=== PATIENT | female | born 1940 | race Caucasian/White ===

== ENCOUNTER 2022-10-09 14:41 | Outpatient (CLI) | payer MEDICARE, SELFPAY ==
--- NOTE | ~2022-10-09 | DEXA_ITS ---
Bone Density Report Name: LENY MACHUCA Age: 82 Sex: Female Ethnicity: White Date of : 1940 Indication: postmenopausal; screening for osteoporosis; height loss; Referring Provider: JOANN CONNER Study: Bone densitometry was performed. Exam Date: October 09, 2022 Accession number: [id number] Bone Density: Region BMD T-score Z-score Classification AP Spine(L1-L4) 1.009 -0.3 2.5 Normal Femoral Neck (Left) 0.647 -1.8 0.7 Osteopenia Total Hip (Left) 0.809 -1.1 1.2 Osteopenia Femoral Neck (Right) 0.631 -2.0 0.5 Osteopenia Total Hip (Right) 0.775 -1.4 0.9 Osteopenia Total Hip Mean 0.792 -1.3 1.1 Osteopenia World Health Organization criteria for BMD impression classify patients as: Normal (T-score at or above -1.0), Osteopenia (T-score between -1.0 and -2.5), or Osteoporosis (T-score at or below -2.5). 10-year Fracture Risk(1): Major Osteoporotic Fracture 20% Hip Fracture 7.3% Reported Risk Factors: [place] (), Neck BMD=0.631, BMI=25.1, alcohol use (1) FRAX(R) Version 3.08. Fracture probability calculated for an untreated patient. Fracture probability may be lower if the patient has received treatment. Clinical Information Provided by Patient: Has 3 or more alcoholic drinks per day Has used the following medications: Prolia (i.e. denosumab), Vitamin D, Calcium Patient maximum height was 63 Menopause Age: 53 No regular weight bearing exercise Drinks caffeinated beverages Onset of menses at age 10 Number of children 2 Impression: UNAPPROVED The patient has low bone mass, based on the Right Femoral Neck T-score. The patient has an estimated ten-year risk of hip fracture of 7.3% and an estimated ten-year risk of major fracture of 20%, based on the WHO FRAX algorithm. The patient has risk factors, including: excessive alcohol use. Discussion: UNAPPROVED BONE DENSITY IS LOW AT ONE OR MORE SKELETAL SITES. THE PATIENT'S BMD AND CLINICAL RISK FACTORS CONTRIBUTE TO THIS PATIENT'S HIGH RISK OF FRACTURE. This patient's lowest T-score is low at one or more skeletal sites. It meets the World Health Organization's (WHO) criteria for ?low bone mass? (T-score between -1.0 and -2.5). The patient's 10-year risk of hip fracture and 10 year risk of a major osteoporotic fracture as calculated by FRAX exceeds the threshold where pharmacological therapy is recommended by the National Osteoporosis Foundation (NOF). However, all treatment decisions require clinical judgment and consideration of individual patient factors, including patient preferences, comorbidities, previous drug use, risk factors not captured in the FRAX model (e.g., frailty, falls, vitamin D deficiency, increased bone turnover, interval significant decline in bone density) and possible under or overestimation of fracture ris
== END 2022-10-09 14:42 | disposition home or self-care (01) ==
LOC: ANHIMG 14:45
PROVIDERS: PCP Family Medicine; Visit Provider Physician Assistant Medical
DX: M81.0 Age-related osteoporosis without current pathological fracture (principal); M85.852 Other specified disorders of bone density and structure, left thigh; M85.851 Other specified disorders of bone density and structure, right thigh
CPT/HCPCS: 77080

== ENCOUNTER 2022-12-26 11:11 | Emergency (ER) | payer MEDICARE, SELFPAY ==
[2022-12-26 11:26] VITALS: BP 120/61; PULSE 87; RESP 16; TEMP 36.5; O2SAT 98
[2022-12-26 11:33] VITALS: BP 120/61; PULSE 87; RESP 16; TEMP 36.5; O2SAT 98
--- NOTE | 2022-12-26 11:36 | ED.URI ---
HPI - URI/Sore Throat General Chief Complaint: Upper Respiratory Infection Stated Complaint: LOSING VOICE/COUGH/RUNNY NOSE/WATERY EYES Time Seen by Provider: 12/26/22 11:24 Source: patient and RN notes reviewed Mode of arrival: ambulatory Limitations: no limitations History of Present Illness HPI Narrative: Patient presents today complaining of 5 day history of hoarse voice, cough, rhinorrhea, watering eyes. Denies congestion, shortness of breath, fever. She has been taking Claritin and Tylenol with mild relief. Denies known sick contacts. Denies history of asthma, COPD, seasonal allergies. Patient just moved to town from [place]. Related Data Home Medications Medication Instructions Recorded Confirmed amlodipine 2.5 mg tablet 2.5 mg PO BID 06/24/22 12/26/22 atorvastatin 10 mg tablet 10 mg PO .QD 06/24/22 12/26/22 biotin 5 mg capsule 5 mg PO .QD 06/24/22 12/26/22 carvedilol 3.125 mg tablet (Coreg) 3.125 mg PO Q12H 06/24/22 11/20/22 carvedilol 6.25 mg tablet (Coreg) 6.25 mg PO Q12H 06/24/22 11/20/22 clobetasol 0.05 % scalp solution 1 applic topical .QD PRN Mouth 06/24/22 12/26/22 sores fluticasone propionate 50 1 spray intranasal BID PRN 06/24/22 12/26/22 mcg/actuation nasal shortness of breath spray,suspension loratadine 10 mg tablet 10 mg PO .QD 06/24/22 12/26/22 polyethylene glycol 3350 17 17 g PO .QD 06/24/22 12/26/22 gram/dose oral powder (Miralax) propylene glycol 0.6 % eye drops 1 drp EACH EYE DAILY PRN dry eyes 06/24/22 12/26/22 (Systane Balance) vitamin B complex (B 1 tablet PO .QD 06/24/22 12/26/22 Complex-Vitamin B12 tablet) aspirin 81 mg tablet 81 mg PO DAILY 12/26/22 12/26/22 calcium-ergocalciferol (vit D2) 1 tablet PO DAILY 12/26/22 12/26/22 tablet cholecalciferol (vitamin D3) 50 50 mcg PO DAILY 12/26/22 12/26/22 mcg (2,000 unit) capsule (Vitamin D3) lisinopril 20 mg tablet 20 mg PO BID 12/26/22 12/26/22 lorazepam 1 mg tablet 1.5 mg PO BID PRN anxiety 12/26/22 12/26/22 multivit with minerals-iron 18 1 tablet PO DAILY 12/26/22 12/26/22 mg-folic ac 400 mcg-vit K 25 mcg tablet (Adults Multivitamin) omega-3 fatty acids 1 cap PO DAILY 12/26/22 12/26/22 zoledronic acid 5 mg/100 mL in 5 mg IV ONCE 12/26/22 12/26/22 mannitol 5 %-water intravenous piggybck (Reclast) Allergies Allergy/AdvReac Type Severity Reaction Status Date / Time No Known Allergies Allergy Verified 11/20/22 12:56 Review of Systems Review of Systems: CONSTITUTIONAL: Denies body aches, fever, chills, or sweats. EYES: Denies visual changes, redness, or discharge.+ watery eyes ENT: Denies congestion, sore throat, or otalgia.+ rhinorrhea, hoarse voice CARDIOVASCULAR: Denies chest pain, palpitations, or edema. RESPIRATORY: Denies dyspnea.+ cough GASTROINTESTINAL: Denies abdominal pain, nausea, vomiting, or diarrhea. GENITOURINARY: Denies dysuria or hematuria. SKIN: Denies rash, itching, or wounds. MUSCULOSKELETAL: Denies back pain, joint pain, or myalgia. NEUROLOGIC: Denies headache, numbness, tingling, or weakness. PSYCH: Denies depression or anxiety. [facility] Surgical History Surgical History History of History of thyroidectomy History of tonsillectomy and adenoidectomy Family History Family History Other Melanoma Social History Social History Smoking status: Never smoker Alcohol intake: current Lack of Transportation: No Lack of Food: Never True Current Housing: I Have Housing Concerned About Future Housing: No Difficulty Paying Gas/Electric Bills: No Difficulty Paying for Meds: No Currently Unemployed: No Education: Bachelor's Degree Difficulty w/ Childcare or Family Care: No Comments At time of signature, I have reviewed and agree with nursing past medical, surgical, social
== END 2022-12-26 11:55 | disposition home or self-care (01) ==
PROVIDERS: Emergency Provider Nurse Practitioner; PCP Physician Assistant Medical
DX: J30.2 Other seasonal allergic rhinitis (principal); J40 Bronchitis, not specified as acute or chronic; J04.2 Acute laryngotracheitis; H10.13 Acute atopic conjunctivitis, bilateral; E89.0 Postprocedural hypothyroidism; Z79.82 Long term (current) use of aspirin
CPT/HCPCS: 99213; G0463

== ENCOUNTER 2023-02-05 09:56 | Inpatient (IN) | payer MEDICARE, SELFPAY ==
[2023-02-05] VITALS (17 sets, daily range): BP systolic 124–159; BP diastolic 61–80; PULSE 87–100; RESP 18–29; TEMP 36.1–37; O2SAT 93–99; BMI 23.2
--- NOTE | ~2023-02-05 | XR_ITS ---
EXAMINATION: XR chest 2V DATE: 02/05/2023 10:30 INDICATION: Chest pain and shortness of breath TECHNIQUE: Frontal and lateral views of the chest are obtained COMPARISON: None available FINDINGS: The lungs are free of acute opacities. No pleural effusion or pneumothorax. The cardiomedia stinal silhouette is normal. There is moderate thoracic spondylosis. 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 An old healed posterior left sevent h rib fracture is noted. IMPRESSION: 1. No acute cardiopulmonary abnormality. Reviewed, dictated and finalized at location B.
--- NOTE | ~2023-02-05 | CT_ITS ---
EXAMINATION: CTA chest PE protocol DATE: 02/05/2023 21:21 INDICATION: Shortness of breath with exertion. TECHNIQUE: Computed tomography angiography (CTA) of the chest was performed with 100 mL Omnipaque-350 intravenous contrast timed to evaluate the pulmonary arteries. Coronal maximum intensity projection 3D-reconstructions were created by the technologist. Automated exposure control and iterative reconst ruction technique were employed. The dose-length product was 147.85 mGy-cm. COMPARISON: Chest 2 views 02/05/2023 FINDINGS: There is mild atelectasis bilaterally. There is a 3 mm nodule in left upper lobe, likely be nign. No pleural effusion. There is right atrial and right ventricular enlargement of the heart. No p ericardial effusion. There are coronary artery calcifications. There are acute pulmonary emboli in al l lobes. There are gallstones in the gallbladder, which is normal in size. There is a healing fractur e of right sixth rib. There is an old healed fracture of left seventh rib. There is moderate thoracic spondylosis. There is mild chronic anterior wedging of multiple vertebral bodies. IMPRESSION: 1. Acute pulmonary emboli in all lobes with right heart strain. Reviewed, dictated and finalized at location E.
--- NOTE | ~2023-02-05 | US_ITS ---
EXAMINATION: US venous doppler [facility] DATE: 02/05/2023 22:55 INDICATION: Chest pain. TECHNIQUE: Grayscale ultrasound images without and with compression and Doppler ultrasound images of the bilateral lower extremity veins were obtained. COMPARISON: None. FINDINGS: The visualized portions of right profunda (deep) femoral vein, femoral vein, popliteal vein, peroneal veins, posterior tibial veins, and greater saphenous vein outflow are patent. There is thrombus in r ight common femoral vein. The visualized portions of left common femoral vein, profunda femoral vein, peroneal veins, posterior tibial veins, and greater saphenous vein outflow are patent. There is thrombus in left femoral and p opliteal veins. IMPRESSION: 1. Deep vein thrombosis involving right common femoral vein, left femoral vein, and left popliteal v ein. Reviewed, dictated and finalized at location E. IMPRESSION: 1. Deep vein thrombosis involving right common femoral vein, left femoral vein , and left popliteal vein.
[2023-02-05 10:29] LABS: Basophils Percent Auto 0.3 % (0.2-1.2); Eosinophils Absolute Auto 0.1 K/mm3 (0-0.3); Eosinophils Percent Auto 0.8 % (0-4.4); Hemoglobin 11.8 g/dL (12.0-15.0); Immature Granulocyte Absolute 0.04 K/mm3 (0.00-0.031); Immature Granulocyte Percent A 0.4 % (0-0.5); Lymphocytes Absolute Auto 1.63 K/mm3 (0.9-3.2); Lymphocytes Percent Auto 16.6 % (18.3-44.2); Mean Corpuscular HGB Conc 32.8 g/dl (32-36); Mean Corpuscular Hemoglobin 34.1 pg (26-34); Monocytes Absolute Auto 0.9 K/mm3 (0.1-0.6); Monocytes Percent Auto 9.6 % (2.6-8.5); Neutrophils Absolute Auto 7.1 K/mm3 (1.3-6.7); Neutrophils Percent Auto 72.3 % (45.5-73.1); Platelet Count Result 294 k/mm3 (150-375); Red Blood Count 3.46 M/mm3 (4.2-5.4); White Blood Count 9.8 K/mm3 (4.5-10.0)
[2023-02-05 10:40] LABS: INR 1.1; Prothrombin Time 14.4 Seconds (11.1-14.7)
[2023-02-05 10:41] LABS: Partial Thromboplastin Time 30.5 SECONDS (22.3-36.8)
[2023-02-05 10:45] LABS: Alanine Aminotransferase 21 U/L (6-35); Albumin Level 4.1 g/dL (3.5-5.1); Alkaline Phosphatase 68 U/L (38-126); Anion Gap 12 mmol/L (8-16); Aspartate Amino Transferase 34 U/L (14-36); Bilirubin,Total 1.2 mg/dL (0.2-1.3); Blood Urea Nitrogen 16 mg/dL (7-17); Carbon Dioxide 19 mmol/L (22-30); Chloride 105 mmol/L (98-107); Estimated Glomerular Filt Rate 60; Glucose 124 mg/dL (65-110); Potassium 4.2 mmol/L (3.4-5.0); Sodium 136 mmol/L (137-145)
--- NOTE | 2023-02-05 11:24 | ED.SOB ---
HPI - SOB/Dyspnea General Chief Complaint: Shortness of Breath/Dyspnea Stated Complaint: dyspnea Time Seen by Provider: 02/05/23 09:56 History of Present Illness HPI Narrative: Patient is an 82-year-old female who presents ER with chest pain or shortness of breath. Reports its been ongoing over the last week. She has central chest discomfort anytime she exerts herself. It makes her short of breath and she feels slightly nauseated. No diaphoresis. No radiating pain to the shoulder or arm. No history of coronary disease. She does have history of mitral valve regurgitation. She had a stress test 1 year ago that was normal Related Data Home Medications Medication Instructions Recorded Confirmed amlodipine 2.5 mg tablet 2.5 mg PO BID 06/24/22 02/05/23 atorvastatin 10 mg tablet 10 mg PO DAILY 06/24/22 02/05/23 biotin 5 mg capsule 5 mg PO DAILY 06/24/22 02/05/23 clobetasol 0.05 % scalp solution 1 applic topical DAILY PRN Mouth 06/24/22 02/05/23 sores loratadine 10 mg tablet 10 mg PO DAILY 06/24/22 02/05/23 polyethylene glycol 3350 17 17 g PO DAILY 06/24/22 02/05/23 gram/dose oral powder (Miralax) propylene glycol 0.6 % eye drops 1 drp EACH EYE DAILY PRN dry eyes 06/24/22 02/05/23 (Systane Balance) aspirin 81 mg tablet 81 mg PO DAILY 12/26/22 02/05/23 calcium-ergocalciferol (vit D2) 2 tablet PO DAILY 12/26/22 02/05/23 tablet cholecalciferol (vitamin D3) 50 50 mcg PO DAILY 12/26/22 02/05/23 mcg (2,000 unit) capsule (Vitamin D3) multivit with minerals-iron 18 1 tablet PO DAILY 12/26/22 02/05/23 mg-folic ac 400 mcg-vit K 25 mcg tablet (Adults Multivitamin) omega-3 fatty acids 1 cap PO DAILY 12/26/22 02/05/23 zoledronic acid 5 mg/100 mL in 5 mg IV ONCE 12/26/22 02/05/23 mannitol 5 %-water intravenous piggybck (Reclast) imipramine HCl 10 mg tablet 10 mg PO DAILY 02/05/23 02/05/23 vitamin B complex (B 1 tablet PO DAILY 02/05/23 02/05/23 Complex-Vitamin B12 tablet) Allergies Allergy/AdvReac Type Severity Reaction Status Date / Time No Known Allergies Allergy Verified 01/29/23 09:20 Review of Systems Review of Systems: All systems reviewed & are unremarkable except as noted in HPI and below Constitutional: Constitutional: Denies chills, Denies fatigue and Denies fever(s) ENT: Denies nasal congestion and Denies sore throat Cardiovascular: Cardiovascular: Reports chest pain, Denies rapid heart rate and Denies radiating jaw, neck or arm pain Respiratory: Respiratory: Denies cough and Denies dyspnea Gastrointestinal: Gastrointestinal: Denies abdominal pain, Reports nausea and Denies vomiting PMFSH Past Medical History Medical History BMI 22.0-22.9, adult Surgical History Surgical History History of History of thyroidectomy History of tonsillectomy and adenoidectomy Family History Family History Father , melanoma No problems noted. Mother Depression Osteoporosis Dementia Sibling No problems noted. 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 Gender identity (if verbalized by the patient): Female Spiritual care concerns: No
--- NOTE | 2023-02-05 11:39 | PC.NURSE ---
EPIFANIO PT DAUGHTER [phone]
[2023-02-05] MEDS: HEPARIN SOD/D5W 100 UNITS/ML 25,000 UNITS/250 ML BAG 7 UNITS IV CONT (11:43)
[2023-02-05] MEDS: HEPARIN SODIUM 5,000 UNITS/ML VIAL 3500 UNITS IV PUSH (11:49)
--- NOTE | 2023-02-05 13:08 | PC.NURSE ---
This patient, Sana Hartley, was admitted to IMU Room 212-01. Patient/family oriented to hospital policies and general routines including ID bracelet, bed and alarms, visiting hours, pain management, procedures, bathroom and other care routines, personal items, smoking policy, room service/diet, and visiting hours. Information on how to activate the Rapid Response Team has been discussed. Patient/Family are encouraged to report perceived risks to care and to ask questions if they do not understand what they are told or what they should do.
[2023-02-05 13:39] LABS: Basophils Percent Auto 0.4 % (0.2-1.2); Eosinophils Absolute Auto 0.1 K/mm3 (0-0.3); Eosinophils Percent Auto 0.7 % (0-4.4); Hematocrit 36.7 % (37.0-47.0); Hemoglobin 12.3 g/dL (12.0-15.0); Immature Granulocyte Absolute 0.04 K/mm3 (0.00-0.031); Immature Granulocyte Percent A 0.4 % (0-0.5); Lymphocytes Percent Auto 22.3 % (18.3-44.2); Mean Corpuscular HGB Conc 33.5 g/dl (32-36); Mean Corpuscular Hemoglobin 34.1 pg (26-34); Mean Corpuscular Volume 101.7 fl (80-100); Mean Platelet Volume 9.9 fl (7.4-10.4); Monocytes Absolute Auto 0.9 K/mm3 (0.1-0.6); Monocytes Percent Auto 8.7 % (2.6-8.5); Neutrophils Absolute Auto 7.3 K/mm3 (1.3-6.7); Neutrophils Percent Auto 67.5 % (45.5-73.1); Platelet Count Result 310 k/mm3 (150-375); Red Blood Count 3.61 M/mm3 (4.2-5.4); White Blood Count 10.8 K/mm3 (4.5-10.0)
[2023-02-05 14:03] LABS: Troponin I 0.516 ng/mL (0.000-0.034)
--- NOTE | 2023-02-05 14:41 | PM.IMHP ---
H&P: HPI History of Present Illness Date/Time: 02/05/23 14:41 Chief Complaint: Shortness of breath Narrative: This is an 82-year-old female patient who has a history of hyperlipidemia hypertension and anxiety. The patient is a lifelong nonsmoker and has not had any previous history of tobacco abuse. The patient stated that she had a stress test approximately 1 year ago that was negative. She also had an echo at that time. The patient stated she has had no prior history of any myocardial infarction or cardiac catheterization nor has she had any cardiac stents for any cardiac events. The patient stated the year ago she had an anxiety attack with she had tightness in her chest and was short of breath. She stated for the last week she has gotten short of breath with minimal exertion and had some chest tightness. She states this is relieved with rest. She states over the last couple days the shortness of breath has gotten so bad that it has limited her activities. She feels fine when she is resting but with any exertion she is short of breath. The patient does take a daily aspirin. She has had no fever or chills. Her white count is 10.8. Hematocrit is 36.7 MCV is 101.7. Her sodium is 136. Her troponin is 0.600, 0.516, 0.498. Cardiology has been consulted the patient was placed on heparin drip. No EKG was available in her chart. Chest x-ray was read as no acute cardiopulmonary abnormality. The patient is being admitted to observation status on the date of service of 02/05/2023. Review of Systems Review of Systems: All systems reviewed & are unremarkable except as noted in HPI and below Constitutional: Constitutional: Reports as per HPI and Reports no additional constitutional complaints Eyes: Eyes: Reports as per HPI and Reports no additional eye complaints ENT: Reports system reviewed and no additional complaints, except as documented and Reports Normal hearing present Cardiovascular: Cardiovascular: Reports no additional cardiovascular complaints Respiratory: Respiratory: Reports no additional respiratory complaints and Reports no additional respiratory complaints Gastrointestinal: Gastrointestinal: Reports as per HPI and Reports no additional gastrointestinal complaints Musculoskeletal: Musculoskeletal: Reports no additional musculoskeletal complaints Integumentary/Breasts: Skin/Breast: Reports system reviewed and no additional complaints, except as docu and Reports as per HPI Neurologic: Reports system reviewed and no additional complaints, except as documented, Reports as per HPI and Reports Normal hearing present Psychiatric: Psychiatric: Reports no additional psychiatric complaints and Reports as per HPI Endocrine: Endocrine: Reports no additional endocrine complaints Hematologic/Lymphatic: Hematologic/Lymphatic: Reports no additional hematologic/lymphatic complaints Allergic/Immunologic: Allergic/Immunologic: Reports no additional allergic/immunologic complaints [facility] Past Medical History Medical History (Updated 02/05/23 @ 19:02 by Vani Lawton NP) Anxiety BMI 22.0-22.9, adult Essential hypertension Hyperlipidemia Nasal polyp Osteopenia Surgical History Surgical History (Updated 02/05/23 @ 19:02 by Vani Lawton NP) H/O dilation and curettage History of appendectomy History of X2 History of thyroidectomy Partial History of tonsillectomy and adenoidectomy Family History Family History (Updated 02/05/23 @ 19:17 by Vani Lawton NP) Father , melanoma No problems noted. Mother Depression Osteoporosis Dementia Sibling No problems noted. Daughter Multiple sclerosis Other Melanoma Social History Social History (Updated 02/05/23 @ 19:17 by Vani Lawton NP) Social History: The patient is . Her has in last year. 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
--- NOTE | 2023-02-05 15:02 | PM.CNCAR ---
Assessment and Plan Assessment and plan (1) Shortness of breath: Code(s): R06.02 - Shortness of breath Status: Acute (2) Troponin level elevated: Code(s): R77.8 - Other specified abnormalities of plasma proteins Status: Acute Plan This is an 82-year-old woman reporting symptoms of exertional shortness of breath of recent onset. Concern is that this is an ischemic equivalent since she has not had these symptoms before and her troponin level is somewhat elevated. I do not see a 12 lead EKG in our chart although she did state that 1 was done in the emergency room. For some reason is not showing up on the electronic record for my review. She is not having any unstable/symptoms at rest. Because of these symptoms and the elevated troponin I would recommend proceeding with a coronary angiogram. Patient understands this and is agreeable. I anticipate doing this procedure on Wednesday morning. Albino Reynolds MD [facility] History of Present Illness History of Present Illness Consult date/time: 02/05/23 15:02 Reason For Visit: NSTEMI Narrative: This is an 82-year-old woman I am seeing at the request of the hospitalist according to orders for non ST elevation [place]. The patient states she is not known to have any cardiac problems before this but came to the emergency room today because of exertional shortness of breath she states the symptoms began about 7-10 days ago and reports that she is a lady it used to be able to conduct her daily activities without any problems and now with modest activity she is experiencing shortness of breath she uses as an example of walking from room to room in her home. With resting for a couple of minutes the symptoms tend to subside her shortness of breath is not associated with any sense of chest pain pressure or heaviness. She is not experiencing any orthopnea or PND. She has noticed in the last 6 months she has occasional lower extremity edema that she is not having any of that at this time. She contacted her PCP about the symptoms today and was told to go to the emergency department. She was seen in the emergency department where her evaluation consisted of standard lab data including troponin levels. Troponins were elevated at 0.6 and 0.5. She was placed on a heparin drip and admitted to the IMU. I do not see an electrocardiogram on the record. There is no other pertinent history. The patient recently moved here last year from [place] after the of her to live in this facility closer to her daughter. She lives in a independent living apartment. She is a nonsmoker she reports a history of hypertension no history of dyslipidemia or diabetes. She has an intravenous heparin drip running has no other complaints or concerns at this time. She states that she recalls her physician in [place] telling her a number of years ago that she had a mildly leaking mitral valve that was being followed in the office clinically she. She also remembers having had a nuclear stress test done at least a few years ago if not earlier than that. She says the study was normal she cannot remember the reason that was performed. Review of Systems Constitutional: Constitutional: Reports no additional constitutional complaints Eyes: Eyes: Reports no additional eye complaints ENT: Reports system reviewed and no additional complaints, except as documented Cardiovascular: Cardiovascular: Reports as per HPI Respiratory: Respiratory: Reports dyspnea on exertion Gastrointestinal: Gastrointestinal: Reports no additional gastrointestinal complaints Musculoskeletal: Musculoskeletal: Reports no additional musculoskeletal complaints Integumentary/Breasts: Skin/Breast: Reports system reviewed and no additional complaints, except as docu Neurologic: Reports system reviewed and no additional complaints, except as documented Endocrine: Endocrine: Reports no additional endocrine complaints Hematologic/Lymphati
[2023-02-05 17:22] LABS: Troponin I 0.498 ng/mL (0.000-0.034)
[2023-02-05 18:25] LABS: Partial Thromboplastin Time 151.9 SECONDS (22.3-36.8)
[2023-02-05] MEDS: ACETAMINOPHEN 325 MG TABLET 650 MG PO (18:26)
--- NOTE | 2023-02-05 18:48 | ECG_ITS ---
Measurements Intervals [place] Rate: 89 P: 83 NE: 190 QRS: -9 QRSD: 82 T: -42 QT: 380 QTc: 464 Interpretive Statements SINUS RHYTHM INCOMPLETE RIGHT BUNDLE BRANCH BLOCK LOW QRS VOLTAGE IN PRECORDIAL LEADS INFERIOR INFARCT, AGE INDETERMINATE ST-T WAVE ABNORMALITY IN ANTEROLATERAL LEADS- CONSIDER ISCHEMIA ABNORMAL ECG NO PREVIOUS ECG AVAILABLE FOR COMPARISON Electronically Signed On 02-05-2023 20:36:15 CDT by Adal Thomas D.O.
[2023-02-05] MEDS: amLODIPine BESYLATE 2.5 MG TABLET PO (19:52)
[2023-02-05] MEDS: carvediloL 6.25 MG TABLET PO (22:18)
[2023-02-05] MEDS: carvediloL 3.125 MG TABLET PO (22:19)
[2023-02-06] VITALS (19 sets, daily range): BP systolic 110–143; BP diastolic 47–77; PULSE 61–102; RESP 18–24; TEMP 36.3–36.6; O2SAT 93–98
--- NOTE | 2023-02-06 | ECHO_ITS ---
Patient Info Name: Sana Hartley Age: 82 years : 1940 Gender: Female Ht: 62 in Wt: 126 lbs BSA: 1.59 m2 HR: 96 bpm BP: 135 / 68 mmHg Heart Rhythm: Sinus Rhythm Technical Quality: Fair Exam Date: 02/06/2023 8:40 AM Exam Location: [facility] Pulmonary Exam Room: 212 Patient Status: Inpatient Admit Date: 02/05/2023 Staff Ordering Physician: Albino Reynolds MD Saw Handle Assembler: Jenn Al RDCS Attending Provider: Albino Lopez MD Referring Physician: Gail DE LA FUENTE; Exam Type: CA echo dop color flow w con Study Info Indications - NSTEMI SOB ELEVATED TROPONINS - ACUTE CORONARY SYNDROME Complete two-dimensional, color flow and Doppler transthoracic echocardiogram is performed with contrast to opacify the left ventricle and to improve the deliniation of the left ventricle endocardial borders. Contrast/Agitated Saline Contrast/Ag. Saline: Definity Amount: 2.00 ml Administered By: Jenn Al [facility] Existing IV Access: Yes IV Access Condition: patent with no signs of infiltration Summary 1. Normal left ventricular size with hyperdynamic systolic function. 2. Right ventricular enlargement with RV systolic dysfunction. 3. Small amount of tricuspid insufficiency valve velocities suggest moderately elevated RV systolic pressure. 4. No left-sided valvular disease. Left Ventricle Left ventricular chamber dimension is normal. Left ventricular systolic function is hyperdynamic, estimated at >70%. The left ventricular diastolic function is normal. Right Ventricle Right ventricular chamber dimension is moderately enlarged. Right ventricular systolic function is reduced. Left Atria Left atrial chamber dimension is normal. Right Atria Right atrial chamber dimension is mildly enlarged. Aortic Valve The aortic valve is trileaflet. There is mild aortic valve sclerosis. Pulmonic Valve The pulmonic valve is normal. Mitral Valve The mitral valve has normal leaflets. Tricuspid Valve The tricuspid valve leaflets are normal. There is mild tricuspid valve regurgitation. Moderate pulmonary hypertension, estimated pulmonary arterial systolic pressure is 58 mmHg. Pericardium/Pleural The pericardium appears normal. Aorta The aortic root size at the sinus of Valsalva is normal. Left Ventricular Outflow Tract Name Value Normal LVOT 2D LVOT Diameter 1.97 cm LVOT Doppler LVOT Peak Gradient 6 mmHg LVOT Mean Gradient 3 mmHg LVOT VTI 19.18 cm LVOT VTI/AV VTI Ratio 1.06 LVOT Stroke Volume 58.56 ml LVOT CO 15.26 l/min LVOT CI 9.61 L/min/m2 Pulmonic Valve Name Value Normal RVOT Doppler RVOT Peak Gradient 1 mmHg PV Doppler
[2023-02-06] MEDS: ACETAMINOPHEN 325 MG TABLET 650 MG PO (00:01)
[2023-02-06] MEDS: LORazepam (*CRX) 1 MG TABLET PO ×2 (00:03→20:44)
[2023-02-06] MEDS: LORazepam (*CRX) 0.5 MG TABLET PO ×2 (00:03→20:44)
[2023-02-06 01:54] LABS: Partial Thromboplastin Time 59.1 SECONDS (22.3-36.8)
[2023-02-06] MEDS: HEPARIN SODIUM 5,000 UNITS/ML VIAL 2000 UNITS IV PUSH ×2 (02:24→08:57)
[2023-02-06 04:53] LABS: Alanine Aminotransferase 35 U/L (6-35); Albumin Level 3.6 g/dL (3.5-5.1); Alkaline Phosphatase 78 U/L (38-126); Anion Gap 8 mmol/L (8-16); Aspartate Amino Transferase 54 U/L (14-36); Bilirubin,Total 0.6 mg/dL (0.2-1.3); Blood Urea Nitrogen 13 mg/dL (7-17); Calcium 8.7 mg/dL (8.4-10.2); Carbon Dioxide 26 mmol/L (22-30); Chloride 103 mmol/L (98-107); Estimated CRCL calculation 41 ml/min; Estimated Glomerular Filt Rate > 60; Glucose 107 mg/dL (65-110); Magnesium 1.8 mg/dL (1.6-2.3); Potassium 3.5 mmol/L (3.4-5.0); Sodium 137 mmol/L (137-145)
[2023-02-06 05:26] LABS: Basophils Percent Auto 0.3 % (0.2-1.2); Eosinophils Absolute Auto 0.1 K/mm3 (0-0.3); Eosinophils Percent Auto 1.1 % (0-4.4); Hematocrit 34.1 % (37.0-47.0); Hemoglobin 11.4 g/dL (12.0-15.0); Immature Granulocyte Absolute 0.03 K/mm3 (0.00-0.031); Immature Granulocyte Percent A 0.3 % (0-0.5); Lymphocytes Absolute Auto 3.02 K/mm3 (0.9-3.2); Lymphocytes Percent Auto 30.7 % (18.3-44.2); Mean Corpuscular HGB Conc 33.4 g/dl (32-36); Mean Corpuscular Hemoglobin 33.7 pg (26-34); Mean Corpuscular Volume 100.9 fl (80-100); Mean Platelet Volume 10.2 fl (7.4-10.4); Monocytes Percent Auto 10.2 % (2.6-8.5); Neutrophils Absolute Auto 5.6 K/mm3 (1.3-6.7); Neutrophils Percent Auto 57.4 % (45.5-73.1); Platelet Count Result 320 k/mm3 (150-375); Red Blood Count 3.38 M/mm3 (4.2-5.4); Red Cell Distribution Width 12.9 % (11.5-14.5); White Blood Count 9.8 K/mm3 (4.5-10.0)
[2023-02-06 08:40] LABS: Partial Thromboplastin Time 64.6 SECONDS (22.3-36.8)
--- NOTE | 2023-02-06 08:58 | PM.PNCARD ---
Progress Note: A&P Assessment and Plan (1) Troponin level elevated: Code(s): R77.8 - Other specified abnormalities of plasma proteins Status: Acute (2) Shortness of breath: Code(s): R06.02 - Shortness of breath Status: Acute Plan 82-year-old lady with DVT/extensive pulmonary embolization with right heart strain. She is hemodynamically stable and is oxygenating adequately however. She is anticoagulated with IV heparin. Given the diagnosis of extensive PE which clearly explains her symptoms there is no indication to proceed with left heart catheterization on Wednesday I will cancel this procedure. She needs to be transition to an oral anticoagulant and this will be deferred to the primary team. If there are additional cardiac questions please let me know otherwise I will sign off at this time since the diagnosis of pulmonary embolism does not require ongoing involvement of our service Albino Reynolds MD [facility] Subjective Date/time seen: Date of service: 02/06/23 08:58 Interval history: Follow-up visit in this 82-year-old lady with: Recent onset of significant debilitating exertional dyspnea with modest troponin elevation. Seen in consultation yesterday afternoon. Initial plans made for coronary angiography with the idea that her dyspnea was a ischemic equivalent. Last night she was found to have significant pulmonary embolism in all lobes as well as DVT. She remains heparinize. At rest she seems to be feeling comfortable. Exam Const: General: comfortable and no acute distress Other: Patient comfortable at rest HENMT: Mouth: Yes moist mucous membranes Eyes: Sclera: sclerae normal Neck: Neck: supple Resp: Auscultation: clear to auscultation bilaterally Cardio: Rate: regular rate Rhythm: regular rhythm Other: Sinus rhythm heart rate 94 GI: GI Palp: Yes Soft to palpation Auscultation: normal bowel sounds Skin: General skin exam: normal color Neuro: Other: Alert and oriented x3 Extrem: Other: No edema Objective Data Vital Signs Vital Signs: Vital Signs - 24 hr 02/05/23 11:16 02/05/23 11:17 02/05/23 11:15 Temperature 37.0 C 36.6 C Pulse Rate 88 87 Respiratory Rate 22 H 22 H Blood Pressure 132/68 Pulse Oximetry 93 Oxygen Delivery Room Air 02/05/23 11:31 02/05/23 11:32 02/05/23 11:52 Temperature Pulse Rate 96 95 99 Respiratory Rate 29 H 25 H 19 Blood Pressure 148/78 H Pulse Oximetry 97 Oxygen Delivery 02/05/23 12:00 02/05/23 12:15 02/05/23 12:35 Temperature Pulse Rate 91 90 Respiratory Rate 18 23 H Blood Pressure 134/61 Pulse Oximetry 98 Oxygen Delivery Room Air 02/05/23 12:35 02/05/23 14:00 02/05/23 13:00 Temperature 36.3 C L Pulse Rate 98 96 98 Respiratory Rate 22 H Blood Pressure 148/68 H Pulse Oximetry 99 Oxygen Delivery 02/05/23 16:00 02/05/23 16:00 02/05/23 16:00 Temperature 36.6 C Pulse Rate 98 99 Respiratory Rate 18 Blood Pressure 124/80 Pulse Oximetry 98 Oxygen Delivery Room Air 02/05/23 18:00 02/05/23 20:00 02/05/23 20:00 Temperature 36.1 C L Pulse Rate 98 100 Respiratory Rate 18 Blood Pressure 135/72 Pulse Oximetry 94 Oxygen Delivery Room Air 02/05/23 22:18 02/05/23 23:41 02/05/23 20:00 Temperature 36.3 C L Pulse Rate 99 97 93 Respiratory Rate 18 Blood Pressure 159/79 H Pulse Oximetry 95 Oxygen Delivery 02/05/23 22:00 02/06/23 00:00 02/06/23 00:00 Temperature Pulse Rate 100 93 Respiratory Rate Blood Pressure Pulse Oximetry Oxygen Delivery Room Air 02/06/23 02:00 02/06/23 04:00 02/06/23 04:00 Temperature 36.4 C Pulse Rate 78 88 Respiratory Rate 18 Blood Pressure 135/68 Pulse Oximetry 93 Oxygen Delivery Room Air 02/06/23 04:00 02/06/23 06:00 02/06/23 08:00 Temperature 36.3 C L Pulse Rate 80 78 86 Respiratory Rate 24 H Blood Pressure 143/64 H Pulse Oxi
[2023-02-06] MEDS: MULTIVITAMINS /C LUTEIN (CENTRUM SILVER) TABLET *BKC 1 TAB PO (09:02)
[2023-02-06] MEDS: CHOLECALCIFEROL 1,000 UNITS TABLET 2000 UNITS PO (09:02)
[2023-02-06] MEDS: OMEGA 3 POLYUNSAT FATTY ACIDS 1 GM CAP PO (09:03)
[2023-02-06] MEDS: METOPROLOL SUCCINATE EXT REL 25 MG TABCR PO (09:03)
[2023-02-06] MEDS: ROSUVASTATIN 10 MG TABLET PO (09:04)
[2023-02-06] MEDS: ESCITALOPRAM OXALATE 10 MG TABLET 20 MG PO (09:04)
[2023-02-06] MEDS: ASPIRIN 81 MG ENTERIC TABLET PO (09:05)
[2023-02-06] MEDS: LORATADINE 10 MG TABLET PO (09:05)
[2023-02-06] MEDS: carvediloL 6.25 MG TABLET PO ×2 (09:05→20:38)
[2023-02-06] MEDS: amLODIPine BESYLATE 2.5 MG TABLET PO ×2 (09:06→16:00)
[2023-02-06] MEDS: carvediloL 3.125 MG TABLET PO ×2 (09:06→20:39)
[2023-02-06] MEDS: polyethylene glycoL 3350 17 GM POWD.PACK PO (09:06)
[2023-02-06] MEDS: PERFLUTREN LIPID MICROSPHERES 1.5 ML VIAL DILUTED TO 10 ML TOTAL VOLUME IV PUSH (09:19)
--- NOTE | 2023-02-06 11:20 | PHAR ---
HOME MED: IMIPRAMINE TAB 10 MG; TAKE 1 TABLET BY MOUTH DAILY. VERIFIED BY PHARMACY.
--- NOTE | 2023-02-06 11:26 | PM.IMPN ---
Progress Note: A&P Assessment and Plan (1) Troponin level elevated: Code(s): R77.8 - Other specified abnormalities of plasma proteins Status: Acute Assessment and Plan: likely related to underlying pulmonary embolism. (2) Essential hypertension: Code(s): I10 - Essential (primary) hypertension Status: Acute Assessment and Plan: Continue with amlodipine and continue with metoprolol. (3) Hyperlipidemia: Qualifiers: Hyperlipidemia type: unspecified Qualified Code(s): E78.5 - Hyperlipidemia, unspecified Code(s): E78.5 - Hyperlipidemia, unspecified Status: Acute Assessment and Plan: Cardiology changed her cholesterol medicine a Crestor from atorvastatin. (4) Shortness of breath: Code(s): R06.02 - Shortness of breath Status: Acute Assessment and Plan: Chest x-ray was negative. All time a CT a pulmonary. The patient is currently on heparin drip. Chest x-ray was negative. 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 (6) Anxiety: Code(s): F41.9 - Anxiety disorder, unspecified Status: Acute Assessment and Plan: Continue with Lexapro (7) Pulmonary embolism: Code(s): I26.99 - Other pulmonary embolism without acute cor pulmonale Status: Acute Assessment and Plan: will transition to oral anticoagulant. Hemodynamically stable Subjective Date/time seen: 02/06/23 11:26 Interval history: No complaints. Hemodynamically stable Exam Const: General: cooperative, healthy appearing, comfortable, no acute distress, well developed, awake, Physically active, average body habitus and well nourished Nutritional Appearance: average body habitus and well nourished Orientation/consciousness: oriented to person, oriented to place, oriented to time and patient oriented x3 Limitations: no limitations HENMT: Head: normal to inspection, No palpable skull fracture present, normocephalic and atraumatic Ears: hearing grossly normal bilaterally and external ears normal Face/Nose/Sinus: Normal external nose present and Normal nares present Eyes: General: appearance normal, both eyes and all related structures Alignment and Position: alignment normal Periorbital: periorbital findings normal Eyelids: eyelids normal Sclera: sclerae normal Pupils: Equal, round and reactive pupils present EOM: EOMs intact bilaterally Neck: Neck: normal visual inspection, full ROM, no lymphadenopathy, trachea midline and supple Chest: Chest palpation & inspection: normal inspection of the chest Resp: Effort & Inspection: normal respiratory effort Auscultation: clear to auscultation bilaterally Percussion: percussion normal Cardio: Palpation: normal PMI Rate: regular rate Rhythm: regular rhythm Heart sounds: S1 normal heart sound present and S2 normal heart sound present Peripheral pulses: Peripheral pulses 2+ throughout GI: Inspection: normal to inspection Auscultation: normal bowel sounds Rectal Exam: deferred Back/Spine/Pelvis: Cervical Spine: cervical ROM normal Skin: General skin exam: normal color Lesions: no lesions Rashes: no rashes Trauma: no lacerations or abrasions Wounds: no wounds Hair: normal Nails: normal Neuro: General: oriented to person, oriented to place, oriented to time and patient oriented x3 Cranial nerves: Yes Equal, round and reactive pupils present and Yes Normal hearing present Cognition (Neuro): normal cognition Speech: normal speech Gait exam (Neuro): Normal gait present Motor exam (neuro): 5/5 motor strength present throughout Sensory Exam: normal sensation Extrem: General: normal to inspection Right upper extremity: normal to inspection and shoulder/upper arm Left upper extremity: normal to inspection and shoulder/upper arm Right lower extremity: normal to inspection Left lo
[2023-02-06 12:26] LABS: Free T4 Free Thyroxine Reflex 1.97 ng/dL (0.78-2.19)
[2023-02-06 13:23] LABS: Total Triiodothyronine (T3) 1.09 NG/ML (0.97-1.69)
[2023-02-06 15:39] LABS: Partial Thromboplastin Time 103.9 SECONDS (22.3-36.8)
[2023-02-06] MEDS: APIXABAN 5 MG TABLET 10 MG PO (20:38)
[2023-02-07] VITALS (10 sets, daily range): BP systolic 117–141; BP diastolic 56–71; PULSE 73–92; RESP 18–20; TEMP 35.9–36.4; O2SAT 94–96
[2023-02-07] MEDS: ESCITALOPRAM OXALATE 10 MG TABLET 20 MG PO (09:15)
[2023-02-07] MEDS: amLODIPine BESYLATE 2.5 MG TABLET PO (09:15)
[2023-02-07] MEDS: MULTIVITAMINS /C LUTEIN (CENTRUM SILVER) TABLET *BKC 1 TAB PO (09:16)
[2023-02-07] MEDS: OMEGA 3 POLYUNSAT FATTY ACIDS 1 GM CAP PO (09:17)
[2023-02-07] MEDS: carvediloL 6.25 MG TABLET PO (09:18)
[2023-02-07] MEDS: METOPROLOL SUCCINATE EXT REL 25 MG TABCR PO (09:19)
[2023-02-07] MEDS: ASPIRIN 81 MG ENTERIC TABLET PO (09:19)
[2023-02-07] MEDS: APIXABAN 5 MG TABLET 10 MG PO (09:22)
[2023-02-07] MEDS: carvediloL 3.125 MG TABLET PO (09:22)
[2023-02-07] MEDS: LORATADINE 10 MG TABLET PO (09:23)
[2023-02-07] MEDS: CHOLECALCIFEROL 1,000 UNITS TABLET 2000 UNITS PO (09:23)
[2023-02-07] MEDS: ROSUVASTATIN 10 MG TABLET PO (09:24)
[2023-02-07] MEDS: polyethylene glycoL 3350 17 GM POWD.PACK PO (09:24)
--- NOTE | 2023-02-07 10:47 | PM.DS ---
DS: Admitting Diagnosis Discharge Date February 07, 2023 Admitting Diagnosis PE DS: Discharge Diagnosis Discharge Diagnosis (1) Troponin level elevated: Code(s): R77.8 - Other specified abnormalities of plasma proteins Status: Acute Assessment and Plan: likely related to underlying pulmonary embolism. (2) Essential hypertension: Code(s): I10 - Essential (primary) hypertension Status: Acute Assessment and Plan: Continue with amlodipine and continue with metoprolol. (3) Hyperlipidemia: Qualifiers: Hyperlipidemia type: unspecified Qualified Code(s): E78.5 - Hyperlipidemia, unspecified Code(s): E78.5 - Hyperlipidemia, unspecified Status: Acute Assessment and Plan: Cardiology changed her cholesterol medicine a Crestor from atorvastatin. (4) Shortness of breath: Code(s): R06.02 - Shortness of breath Status: Acute Assessment and Plan: Chest x-ray was negative. All time a CT a pulmonary. The patient is currently on heparin drip. Chest x-ray was negative. 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 (6) Anxiety: Code(s): F41.9 - Anxiety disorder, unspecified Status: Acute Assessment and Plan: Continue with Lexapro (7) Pulmonary embolism: Code(s): I26.99 - Other pulmonary embolism without acute cor pulmonale Status: Acute Assessment and Plan: will transition to oral anticoagulant. Hemodynamically stable DS: Summary Hospital Course Hospital Course: Patient is an 82-year-old came in with chest pain and mild elevation troponin. Initially we thought this was a non STEMI. However workup revealed a pulmonary embolism. She required no oxygen, she is able to get up move around the room and do her normal activities. She does have a fairly large clot burden but she has tolerated heparin to transition to Eliquis. Patient is now on Eliquis orally and can be discharged. She will need follow-up with Cardiology as she may need ischemic workup in the future. Also follow-up primary care physician Time Spent with Patient Time attestation: Total time spent providing and/or coordinating discharge services: Exam Const: General: cooperative, healthy appearing, comfortable, no acute distress, well developed, awake, Physically active, average body habitus and well nourished Nutritional Appearance: average body habitus and well nourished Orientation/consciousness: oriented to person, oriented to place, oriented to time and patient oriented x3 Limitations: no limitations HENMT: Head: normal to inspection, No palpable skull fracture present, normocephalic and atraumatic Ears: hearing grossly normal bilaterally and external ears normal Face/Nose/Sinus: Normal external nose present and Normal nares present Eyes: General: appearance normal, both eyes and all related structures Alignment and Position: alignment normal Periorbital: periorbital findings normal Eyelids: eyelids normal Sclera: sclerae normal Pupils: Equal, round and reactive pupils present EOM: EOMs intact bilaterally Neck: Neck: normal visual inspection, full ROM, no lymphadenopathy, trachea midline and supple Chest: Chest palpation & inspection: normal inspection of the chest Resp: Effort & Inspection: normal respiratory effort Auscultation: clear to auscultation bilaterally Percussion: percussion normal Cardio: Palpation: normal PMI Rate: regular rate Rhythm: regular rhythm Heart sounds: S1 normal heart sound present and S2 normal heart sound present Peripheral pulses: Peripheral pulses 2+ throughout GI: Inspection: normal to inspection Auscultation: normal bowel sounds Rectal Exam: deferred Back/Spine/Pelvis: Cervical Spine: cervical ROM normal Skin: General skin exam: normal color Lesions: no lesions Rashes: no rashes Trau
== END 2023-02-07 12:00 | disposition home or self-care (01) | DRG 176 ==
LOC: ANHED 10:43 → ANHIMU 11:59
PROVIDERS: Nurse Practitioner; Admitting Provider Chiropractor; Emergency Provider Emergency Medicine; PCP Family Medicine; Visit Provider Chiropractor
DX: I26.99 Other pulmonary embolism without acute cor pulmonale (principal); I82.432 Acute embolism and thrombosis of left popliteal vein; I82.412 Acute embolism and thrombosis of left femoral vein; I38 Endocarditis, valve unspecified; I10 Essential (primary) hypertension; E78.5 Hyperlipidemia, unspecified; F41.9 Anxiety disorder, unspecified; M85.80 Other specified disorders of bone density and structure, unspecified site; Z90.49 Acquired absence of other specified parts of digestive tract; R77.8 Other specified abnormalities of plasma proteins
CPT/HCPCS: 36415; 71046; 71275; 80053; 83735; 84439; 84443; 84480; 84484; 85025; 85610; 85730; 93005; 93306; 93970; 96365; 99285; A9270; C8929; G0378; J1644; Q9957; Q9967

== ENCOUNTER 2024-10-27 16:38 | Outpatient (CLI) | payer MEDICARE, SELFPAY ==
--- NOTE | ~2024-10-27 | CT_ITS ---
History: Injury PROCEDURE: CT head without contrast. COMPARISON: None TECHNIQUE: Axial imaging of the head performed from the skull base to the vertex without IV contrast. Sagittal a nd coronal reformations obtained. DLP: 605 mGy-cm FINDINGS: The ventricles are enlarged. The dilatation of the ventricles is proportional to the degree of sulcal prominence, not uncommon in the senescent brain. Decreased attenuation is identified within the periventricular white matter, likely secondary to micr ovascular ischemic disease, in a patient of this age. There is no mass, mass effect or midline shift. There is no abnormal extra-axial fluid collection or intracranial hemorrhage. Visualized paranasal sinuses are clear. The mastoid air cells are well aerated. No acute displaced fractures within the overlying cranium. Impression: No acute intracranial hemorrhage or suspicious mass effect. Reviewed, dictated and finalized at location A. Impression: No acute intracranial hemorrhage or suspicious mass effect.
--- OUTSIDE RECORDS SUMMARY | 2024-10-27 16:41 | XMS_ITS ---
Author Name Lissa Cuevas Address [address] [place] [address] Phone [phone] Organization [employer] ices Address [address] [facility] [place] [address] Phone [phone] Care Team Providers Care Cytology Supervisor Name Role Phone Lissa Cuevas Unavailable [phone] Functional Status No Results Mental Status No Results Allergies and Intolerances No Known Allergies Encounters Program Name Primary Diagnosis Admission Date/Time Dis charge Date/Time null WedMay 01 06:00 :00 EDT 2021 [facility] WedJul 20 19:00:00 EST 2023Sep 29 18:59:00 EST 2024 Problems Active Concerns * Low back pain, unspecified* Code: * Start Date: WedJul 21 00:00:00 EST 2023 * End Date: * Text: * Weakness* Code: * Start Date: WedJul 21 00:00:00 EST 2023 * End Date: * Text: Reason for Referral
== END 2024-10-27 16:39 | disposition home or self-care (01) ==
PROVIDERS: PCP Internal Medicine; Visit Provider Internal Medicine
DX: T14.90XA Injury, unspecified, initial encounter (principal); X58.XXXA Exposure to other specified factors, initial encounter
CPT/HCPCS: 70450

== ENCOUNTER 2024-10-31 14:48 | Outpatient (CLI) | payer MEDICARE, SELFPAY ==
--- NOTE | ~2024-10-31 | CT_ITS ---
EXAMINATION: CTA chest PE protocol DATE: 10/31/2024 22:17 CDT INDICATION: Shortness of breath. TECHNIQUE: Computed tomographic angiography (CTA) of the chest was performed with 100 mL Omnipaque-35 0 intravenous contrast. The dose-length product was 155.58 mGy-cm. Maximum intensity projection 3D-re constructions of the aorta and other arteries were constructed by the technologist on a separate work station. COMPARISON: 02/05/2023 FINDINGS/OBSERVATIONS: PULMONARY ARTERIES: No filling defect is identified within the main or proximal pulmonary artery. The main pulmonary artery is not enlarged. THORACIC AORTA: No aneurysmal dilatation or dissection is present. The great vessels are intact LUNGS: The lungs are clear. MEDIASTINUM: No morphologically suspicious or pathologically enlarged lymph nodes are identified with in the mediastinum or bilateral axilla. BONES OF THE CHEST: No acute fracture. Age-appropriate degenerative disease. No lytic or blastic lesions. HEART: The heart is of normal size, without pericardial effusion. IMPRESSION: No pulmonary embolus. No thoracic aortic dissection. The lungs are clear. Reviewed, dictated and finalized at location A.
[2024-10-31 15:23] LABS: Estimated Glomerular Filt Rate 53
--- OUTSIDE RECORDS SUMMARY | 2024-10-31 16:22 | XMS_ITS ---
Author Name Lissa Cuevas Address [address] [place] [address] Phone [phone] Organization [email or web address] ices Address [address] [place] [address] Phone [phone] Care Team Providers Care Chiller Hand Name Role Phone Lissa Cuevas Unavailable [phone] Functional Status No Results Mental Status No Results Allergies and Intolerances No Known Allergies Encounters Program Name Primary Diagnosis Admission Date/Time Dis charge Date/Time [facility] WedJul 20 19:00:00 EST 2023Sep 29 18:59:00 EST 2024 null WedMay 01 06:00 :00 EDT 2021 Problems Active Concerns * Low back pain, unspecified* Code: * Start Date: WedJul 21 00:00:00 EST 2023 * End Date: * Text: * Weakness* Code: * Start Date: WedJul 21 00:00:00 EST 2023 * End Date: * Text: Reason for Referral
--- OUTSIDE RECORDS SUMMARY | 2024-10-31 16:22 | XMS_ITS ---
Author Name Lissa Cuevas Address [address] [place] [address] Phone [phone] Organization [employer] ices Address [address] [facility] [address] Phone [phone] Care Team Providers Care Virtual Assistant Name Role Phone Lissa Cuevas Unavailable [phone] Functional Status No Results Mental Status No [...]
== END 2024-10-31 14:49 | disposition home or self-care (01) ==
PROVIDERS: PCP Internal Medicine; Visit Provider Internal Medicine
DX: I26.99 Other pulmonary embolism without acute cor pulmonale (principal)
CPT/HCPCS: 71275; Q9967

== ENCOUNTER 2024-11-06 14:38 | Outpatient (CLI) | payer MEDICARE, SELFPAY ==
--- NOTE | ~2024-11-06 | US_ITS ---
EXAMINATION: US venous doppler [facility] DATE: 11/06/2024 15:37 INDICATION: Acute embolism and thrombosis TECHNIQUE: Grayscale ultrasound images without and with compression and Doppler ultrasound images of the bilateral lower extremity veins were obtained. COMPARISON: None. FINDINGS: The visualized portions of right common femoral vein, profunda (deep) femoral vein, femoral vein, pop liteal vein, posterior tibial veins, peroneal veins, gastrocnemius vein and greater saphenous vein ou tflow are patent. Again seen is noncompressible, nonocclusive thrombus in the left femoral and popliteal veins. There i s new noncompressible thrombus in the paired peroneal veins at the left calf. The visualized portions of left common femoral vein, profunda femoral vein, posterior tibial veins, peroneal veins, gastrocn emius vein and greater saphenous vein outflow are patent. IMPRESSION: 1. Interval resolution of the prior deep venous anastomosis in the right common femoral vein. 2. Persistent deep venous anastomosis in the left femoral and popliteal veins with new thrombosis in the paired peroneal veins at the left calf. Dr. Marc discussed these findings with Dr. Childress at 3:40 PM. Reviewed, dictated and finalized at location A. IMPRESSION: 1. Interval resolution of the prior deep venous anastomosis in the right commo n femoral vein. 2. Persistent deep venous anastomosis in the left femoral and popliteal veins w ith new thrombosis in the paired peroneal veins at the left calf. Dr. Marc discussed these findings with Dr. Childress at 3:40 PM.
--- OUTSIDE RECORDS SUMMARY | 2024-11-06 16:27 | XMS_ITS ---
Author Name Lissa Cuevas Address [address] [place] [address] Phone [phone] Organization [employer] ices Address [address] [facility] [place] [address] Phone [phone] Care Team Providers Care Tentmaker Name Role Phone Lissa Cuevas Unavailable [phone] Functional Status No Results Mental Status No [...]
--- OUTSIDE RECORDS SUMMARY | 2024-11-06 16:27 | XMS_ITS ---
Author Name Lissa Cuevas Address [address] [place] [address] Phone [phone] Organization [employer] Address [address] [place] [address] Phone [phone] Care Team Providers Care Loss Prevention/Safety District Manager Name Role Phone Lissa Cuevas Unavailable [phone] Functional Status Mental Status Allergies and Intolerances Encounters Problems Reason for Referral
== END 2024-11-06 14:39 | disposition home or self-care (01) ==
PROVIDERS: PCP Internal Medicine; Visit Provider Internal Medicine
DX: I82.413 Acute embolism and thrombosis of femoral vein, bilateral (principal)
CPT/HCPCS: 93970

== ENCOUNTER 2025-03-07 14:47 | Outpatient (CLI) | payer MEDICARE, SELFPAY ==
--- NOTE | ~2025-03-07 | DEXA_ITS ---
Bone Density Report Name: LENY MACHUCA Age: 84 Sex: Female Ethnicity: White Date of : 1940 Indication: osteopenia; height loss; Referring Provider: ANUJ CHAVEZ Study: Bone densitometry was performed. Exam Date: March 07, 2025 Accession number: [id number] Bone Density: Region BMD T-score Z-score Classification AP Spine(L1-L4) 1.007 -0.4 2.5 Normal Femoral Neck (Left) 0.607 -2.2 0.3 Osteopenia Total Hip (Left) 0.789 -1.3 1.1 Osteopenia Femoral Neck (Right) 0.598 -2.3 0.3 Osteopenia Total Hip (Right) 0.797 -1.2 1.1 Osteopenia Total Hip Mean 0.793 -1.3 1.1 Osteopenia World Health Organization criteria for BMD impression classify patients as: Normal (T-score at or above -1.0), Osteopenia (T-score between -1.0 and -2.5), or Osteoporosis (T-score at or below -2.5). 10-year Fracture Risk(1): Major Osteoporotic Fracture 16% Hip Fracture 5.4% Reported Risk Factors: [place] (), Neck BMD=0.598, BMI=24.2 (1) FRAX(R) Version 3.08. Fracture probability calculated for an untreated patient. Fracture probability may be lower if the patient has received treatment. Previous Exams: Region Exam Age BMD T-score BMD Change BMD Change Date g/cm2 vs Baseline vs Previous AP Spine (L1-L4) 03/07/2025 84 1.007 -0.4 -0.001 (-0.1%) -0.001 (-0.1%) 10/09/2022 82 1.009 -0.3 Total Hip(Left) 03/07/2025 84 0.789 -1.3 -0.020 (-2.4%) -0.020 (-2.4%) 10/09/2022 82 0.809 -1.1 Total Hip(Right) 03/07/2025 84 0.797 -1.2 0.022 (2.9%) 0.022 (2.9%) 10/09/2022 82 0.775 -1.4 *Denotes significance at 95% confidence level, LSC for AP Spine = 0.022 g/cm2, LSC for Total Hip = 0.027 g/cm2 Clinical Information Provided by Patient: Has used the following medications: Prolia (i.e. denosumab), Vitamin D, Calcium Patient maximum height was 63 Menopause Age: 53 No regular weight bearing exercise Drinks caffeinated beverages Onset of menses at age 10 Number of children 2 Impression: The patient has low bone mass, based on the Right Femoral Neck T-score. The patient has an estimated ten-year risk of hip fracture of 5.4% and an estimated ten-year risk of major fracture of 16%, based on the WHO FRAX algorithm. No significant bone loss was observed. Discussion: BONE DENSITY IS LOW AT ONE OR MORE SKELETAL SITES. THE PATIENT'S BMD AND CLINICAL RISK FACTORS CONTRIBUTE TO THIS PATIENT'S INCREASED RISK OF FRACTURE. This patient's lowest T-score is low at one or more skeletal sites. It meets the World Health Organization's (WHO) criteria for ?low bone mass? (T-score between -1.0 and -2.5). The patient's 10-year risk of hip fracture as calculated by FRAX exceeds the threshold where pharmacological therapy is recommended by the National Osteoporosis Foundation (NOF). However, all treatment decisions require clinical judgment and consideration of individual patient factors, including patient preferences, comorbidities, previous drug use, risk factors not captured in the FRAX model (e.g., frailty, falls, vitamin D deficiency, increased bone turnover, interval significant decline in bone density) and possible under or overestimation of fracture risk by FRAX. The patient should follow a healthful lifestyle (good nutrition with adequate calcium and vitamin D, and appropriate weight-bearing exercise). Follow-Up: Consider a repeat BMD and Vertebral Fracture Assessment (VFA) exam in 2 years or sooner if medically necessary, to reassess this patient's status. Reported by: ARVIN on 03/07/2025 3:25:00 PM. Reviewed, dictated and finalized at location A.
--- OUTSIDE RECORDS SUMMARY | 2025-03-07 14:51 | XMS_ITS ---
Author Name Auto Generated, Auto Generated Organization [facility] Address [address] [facility] [place] [address] Phone [phone] Care Team Providers Care City Planner Name Role Phone Lissa Cuevas Unavailable [phone] Functional Status No Results Mental Status No [...]
--- OUTSIDE RECORDS SUMMARY | 2025-03-07 14:51 | XMS_ITS | Clinical Summary ---
Author Organization [facility] Juanjo Reganalka Address [address] [place] [id number] Care Team Providers Care Artificial Flowers Supervisor Name Role Phone Unavailable Primary Care Provider Unavailabl e Allergies No known active allergies Medications amLODIPine (NORVASC) 2.5 mg tablet Take 2.5 mg by mouth daily. 5 Active escitalopram oxalate (LEXAPRO) 20 mg tablet Take 20 mg by mouth daily. 5 Active atorvastatin (LIPITOR) 10 mg tablet Take 10 mg by mouth daily. 5 Active carvediloL (COREG) 12.5 mg tablet Take 12.5 mg by mouth 2 times daily. 5 Active levothyroxine 88 mcg tablet Take 88 mcg by mouth daily in the morning. 5 Active LORazepam (ATIVAN) 1 mg tablet Take 1 mg by mouth Continuous as needed for Insomnia. 5 Active imipramine HCl (TOFRANIL) 10 mg tablet Take 10 mg by mouth daily at bedtime. 5 Active aspirin (JAVIER CHEWABLE) 81 mg Tablet, Chewable Take 81 mg by mouth daily. Active cholecalcifero l 1,250 mcg (50,000 unit) Capsule 50,000 Units by See Admin Instructions route every 7 days. 5 Active ketoconazole (NIZORAL) 2 % Shampoo Apply to affected area daily. 5 Active loratadine (CLARITIN) 10 mg tablet Take 10 mg by mouth 1 time daily as needed for Allergies. Active pEG 400-propylene glycol (Systane, PF,) 0.4-0.3 % solution Administer 1 Drop in both eyes see administration instructions. Active acetaminophen (Tylenol 8 Hour) 650 mg Extended Release tablet Take 650 mg by mouth every 6 hours as needed for Pain. Active apixaban (Eliquis) 5 mg tablet Take 1 Tablet (5 mg) by mouth 2 times daily. 60 Tablet 4 Active Active Problems No known active problems Encounters Date Type Department Care Team Description 02/27/2025 External Device Data STL ABSTRACTION Provider, Abstract 02/07/2025 External Device Data STL ABSTRACTION Provider, Abstract 02/06/2025 External Device Data [facility] ABSTRACTION Provider, Abstract 01/09/2025 External Device Data ST[facility] ABSTRACTION Provider, Abstract 12/14/2024 External Device Data STL ABSTRACTION Provider, Abstract 12/12/2024 External Device Data STL ABSTRACTION Provider, Abstract 12/05/2024 External Device Data STL ABSTRACTION Provider, Abstract 12/05/2024 External Device Data STL ABSTRACTION Provider, Abstract 12/05/2024 External Device Data STL ABSTRACTION Provider, Abstract from Last 3 Months Family History Medical History Relation Name Comments No Known Problems Brother No Known Problems Child 1 No Known Problems Child 2 Melanoma Father No Known Problems Mother No Known Problems Sister Relation Name Status Comments Brother Alive Child 1 Alive Child 2 Alive Father Mother Sister Alive Social History Tobacco Use Types Packs/Day Years Used Date Smoking Tobacco: Never Smokeless Tobacco: Never Tobacco Cessation:Counseling Given: Not Answered Alcohol Use Standard Drinks/Week Comments Yes 3 (1 standard drink = 0.6 oz pur e alcohol) everyday Comments Unknown Sex and Gender Information Value Date Recorded Sex Assigned at Not on file Legal Sex Female 2:28 PM CDT Gender Identity Not on file Sexual Orientation Not on file Last Filed Vital Signs Vital Sign Reading Time Taken Comments Blood Pressure 112/61 11/28/2024 11:25 AM CDT Pulse 52 11/28/2024 11:25 AM CDT Temperature 36.4 C (97.6 F) 11/28/2024 11:25 AM CDT Respiratory Rate 15 11/28/2024 11:25 AM CDT Oxygen Saturation 94% 11/28/2024 11:25 AM CDT Inhaled Oxygen Concentration - - Weight 60.4 kg (133 lb 3.2 oz) 11/28/2024 11:25 AM CDT Height 157.5 cm (5' 2) 11/28/2024 11:25 AM CDT Body Mass Index 24.36 11/28/2024 11:25 AM CDT Plan of Treatment Upcoming Encounters Date Type Department Care Team (Late st Contact Info) Description 04/17/2025 2:15 PM CDT Office Visit [facility] Oncology and Hematology - [place] [address] [place] [id number] Jeancarlos Gomes MD [address] [place] [address] Health Maintenance Due Date Last Done Comments DTAP/TDAP/TD VACCINES (1 - Tdap) 1957 PNEUMOCOCCAL VACCINE 50+ YEARS (1 of 1 - PCV) 04/11/19 88 ZOSTER VACCINE (1 of 2) 1988 OSTEOPOROSIS SCREENING 2003 RSV VACCINE (60+ or ) (1 - 1-dose 75+ series) 2013 INFLUENZA VACCINE (#1) 2025 Insurance MEDICARE PART A AND B [facility] [id number]
--- OUTSIDE RECORDS SUMMARY | 2025-03-07 14:51 | XMS_ITS ---
Author Name Auto Generated, Auto Generated Organization [facility] Address [address] [place] [address] Phone [phone] Care Team Providers Care Forensic Document Examiner Name Role Phone Lissa Cuevas Unavailable [phone] Functional Status No Results Mental Status No [...]
== END 2025-03-07 14:48 | disposition home or self-care (01) ==
LOC: ANHIMG 14:48
PROVIDERS: PCP Internal Medicine; Visit Provider Nurse Practitioner Family
DX: M85.89 Other specified disorders of bone density and structure, multiple sites (principal); Z78.0 Asymptomatic menopausal state
CPT/HCPCS: 77080

== ENCOUNTER 2025-04-10 08:48 | Outpatient (CLI) | payer MEDICARE, SELFPAY ==
--- NOTE | ~2025-04-10 | US_ITS ---
EXAMINATION: US venous doppler LE LT, 04/10/2025 9:19 CDT HISTORY: acute DVT of proximal vein of left LE Comparison: None Technique: May-scale and color Doppler images were attempted of the lower saphenofemoral junction, common femoral vein,superficial femoral vein, proximal deep femoral vein, proximal deep femoral vein, popliteal vein and posterior tibial veins. Findings: Deep Venous System:Normal flow, augmentation and compressibility. No echogenic thrombus identified. The contralateral saphenofemoral junction appears unremarkable. Superficial Venous SystemNo superficial thrombophlebitis. Soft tissues: Soft tissues are unremarkable. Impression: Negative for DVT. Reviewed, dictated and finalized at location A. Impression: Negative for DVT.
--- OUTSIDE RECORDS SUMMARY | 2025-04-10 09:48 | XMS_ITS | Clinical Summary ---
Author Organization [facility] Juanjo Shen Address [address] [place] [address] Care Team Providers Care Real Estate Appraiser Name Role Phone Unavailable Primary Care Provider [...] Encounters Date Type Department Care Team Description 03/27/2025 External Device Data STL ABSTRACTION Provider, Abstract 03/13/2025 External Device Data STL ABSTRACTION Provider, Abstract 02/27/2025 External Device Data STL ABSTRACTION Provider, [...] Description 04/17/2025 2:15 PM CDT Office Visit [facility] Oncology and Hematology - [place] [address] [place] [address] Jeancarlos Gomes MD [address] [place] [address] Health Maintenance Due Date Last Done Comments DTAP/TDAP/TD VACCINES (1 - Tdap) 1957 PNEUMOCOCCAL VACCINE 50+ YEARS (1 of 1 - PCV) 04/11/19 88 ZOSTER VACCINE (1 of 2) 1988 OSTEOPOROSIS SCREENING 2003 RSV VACCINE (60+ or ) (1 - 1-dose 75+ series) 2013 INFLUENZA VACCINE (#1) 2025 Insurance MEDICARE PART A AND B [facility] [id number]
== END 2025-04-10 08:49 | disposition home or self-care (01) ==
PROVIDERS: PCP Internal Medicine; Visit Provider Internal Medicine Hematology & Oncology
DX: I82.4Y2 Acute embolism and thrombosis of unspecified deep veins of left proximal lower extremity (principal)
CPT/HCPCS: 93971

== ENCOUNTER 2025-07-23 09:39 | Outpatient (CLI) | payer MEDICARE, SELFPAY ==
--- OUTSIDE RECORDS SUMMARY | 2025-07-23 09:57 | XMS_ITS | Clinical Summary ---
Author Organization [facility] Juanjo Shen Address [address] [place] [address] Care Team Providers Care Director Of Distribution Name Role Phone Benny Childress MD Primary Care Provider + Allergies No known active allergies Medications amLODIPine [...] Encounters Date Type Department Care Team Description 05/15/2025 External Device Data STL ABSTRACTION Provider, Abstract [...] Sign Reading Time Taken Comments Blood Pressure 109/53 04/17/2025 2:11 PM CDT Pulse 70 04/17/2025 2:11 PM CDT Temperature 36.6 C (97.8 F) 04/17/2025 2:11 PM CDT Respiratory Rate 15 04/17/2025 2:11 PM CDT Oxygen Saturation 93% 04/17/2025 2:11 PM CDT Inhaled Oxygen Concentration - - Weight 59.1 kg (130 lb 3.2 oz) 04/17/2025 2:11 P M CDT Height 157.5 cm (5' 2) 11/28/2024 11:25 AM CDT Body Mass Index 23.81 11/28/2024 11:25 AM CDT Plan of Treatment Upcoming Encounters Date Type Department Care Team (Late st Contact Info) Description 10/16/2025 1:15 PM CDT Office Visit [facility] Oncology and Hematology - [place] [address] [place] [phone] Jeancarlos Gomes MD [address] [place] [address] Health Maintenance Due Date Last Done Comments DTAP/TDAP/TD VACCINES (1 - Tdap) 1957 PNEUMOCOCCAL VACCINE 50+ YEA RS (1 of 1 - PCV) 1988 ZOSTER VACCINE (1 of 2) 1988 RSV VACCINE (60+ or ) (1 - 1-dose 75+ series) 2013 INFLUENZA VACCINE (#1) 2025 OSTEOPOROSIS SCREENING 03/07/2030 5, 10/09/2022, 2021, Additional history exists Insurance MEDICARE PART A AND B [facility] [id number] Care Teams Director Of Distribution Relationship Specialty Start Date End Date Benny Childress MD [address] [place] [phone] PCP - General Internal Medicine 04/17/25
== END 2025-07-23 09:40 | disposition home or self-care (01) ==
LOC: ANHAUDIO 09:39
PROVIDERS: PCP Internal Medicine; Visit Provider Internal Medicine
DX: H90.3 Sensorineural hearing loss, bilateral (principal)
CPT/HCPCS: 92557; 92567